=== PATIENT | female | born 1970 | race Caucasian/White ===

== ENCOUNTER 2017-09-30 12:48 | Emergency (ER) | payer MEDICARE, MEDICAID ==
[2017-09-30] MEDS ORDERED: HYDROmorphone 1 MG/ML Syringe IVPUSH ONE ×3 (13:17→14:10)
--- NOTE | 2017-09-30 13:25 | EDM.PDOC ---
ED HPI GENERAL MEDICAL PROBLEM - General Chief Complaint: Lower Extremity Injury/Pain Stated Complaint: AMBULANCE Time Seen by Provider: 09/30/17 13:00 Source of Information: Reports: Patient History Limitations: Reports: No Limitations - History of Present Illness INITIAL COMMENTS - FREE TEXT/NARRATIVE: This 47 yo female patient reports to the ED due to a ground level fall and left lower extremity pain. The patient reports she was walking and fell. During the fall, the patient reports hearing a "snap." The patient was brought to the ED by [facility] without IV access, or a splint applied. The patient reports her pain is a 10/10 at this time. The patient did take a [place] 30 minutes prior to the incident. Onset: Today Duration: Minutes: Location: Reports: Lower Extremity, Left Quality: Reports: Ache, Sharp Severity: Severe Improves with: Reports: None Worsens with: Reports: None Context: Reports: Other (ground level fall) Associated Symptoms: Reports: No Other Symptoms Left Lower Leg Pain Score (Numeric/FACES): 10 - Related Data Allergies Allergy/AdvReac Type Severity Reaction Status Date / Time ibuprofen [From Motrin] Allergy Nausea and Verified 09/30/17 13:21 Vomiting meperidine HCl [From Demerol] Allergy Hives Verified 09/30/17 13:21 sumatriptan [From Imitrex] Allergy Swollen Verified 09/30/17 13:21 Tongue sumatriptan succinate Allergy Swollen Verified 09/30/17 13:21 [From Imitrex] Tongue Home Meds: Home Meds Acetaminophen [Tylenol Extra Strength] 500 mg PO ASDIRECTED PRN 01/26/14 [ History] Zolpidem [Ambien] 10 mg PO ASDIRECTED PRN 12/18/14 [History] clonazePAM [Clonazepam] 1 mg PO ASDIRECTED PRN 12/18/14 [History] oxyCODONE HCl/Acetaminophen [Endocet 5-325 Tablet] 1 tab PO ASDIRECTED 12/18/14 [History] tiZANidine [Zanaflex] 4 mg PO ASDIRECTED 12/18/14 [History] hydrOXYzine HCl [hydrOXYzine] 10 mg PO Q6H PRN #30 tablet 12/21/14 [Rx] Past Medical History - Past Health History Medical/Surgical History: Denies Medical/Surgical History Social & Family History - Tobacco Use Smoking Status *Q: Current Every Day Smoker Years of Tobacco use: 20 Used Tobacco, but Quit: No Second Hand Smoke Exposure: Yes - Alcohol Use Days Per Week of Alcohol Use: 0 - Recreational Drug Use Recreational Drug Use: No - Living Situation & Occupation Living situation: Reports: with Family Occupation: Employed Review of Systems - Review of Systems Review Of Systems: ROS reveals no pertinent complaints other than HPI. ED EXAM, GENERAL - Physical Exam Exam: See Below Exam Limited By: No Limitations General Appearance: Alert, WD/WN, Severe Distress, Obese Eye Exam: Bilateral Eye: EOMI, Normal Inspection, PERRL Ears: Normal External Exam, Normal Canal, Hearing Grossly Normal, Normal TMs Nose: Normal Inspection, Normal Mucosa, No Blood Throat/Mouth: Normal Inspection, Normal Lips, Normal Teeth, Normal Gums, Normal Oropharynx, Normal Voice, No Airway Compromise Head: Atraumatic, Normocephalic Neck: Normal Inspection, Supple, Non-Tender, Full Range of Motion Respiratory/Chest: No Respiratory Distress, Lungs Clear, Normal Breath Sounds, No Accessory Muscle Use, Chest Non-Tender Cardiovascular: Normal Peripheral Pulses, Regular Rate, Rhythm, No Edema, No Gallop, No JVD, No Murmur, No Rub GI/Abdominal: Normal Bowel Sounds, Soft, Non-Tender, No Organomegaly, No Distention, No Abnormal Bruit, No Mass (Female) Exam: Deferred Rectal (Female) Exam: Deferred Back Exam: Normal Inspection, Full Range of Motion, NT Extremities: Leg Pain (left lower extremity), Other (deformity of the left lower leg (mid Tib/fib)) Neurological: Alert, Oriented, CN II-XII Intact, Normal Cognition, No Motor/ Sensory Deficits Psychiatric: Normal Affect, Normal Mood Skin Exam: Warm, Dry, Intact, Normal Color, No Rash Lymphatic: No Adenopathy Course - Vital Signs Last Recorded V/S: Last Vital Signs Temp 36.4 C 09/30/17 13:10 Pulse 87 09/30/17 13:10 Resp 26 H 09/30/17 13:10 BP 145/75 H 09/30/17 13:10 Pulse Ox 98 09/30/17 13:10 - Orders/Labs/Meds Orders: Active Orders 24 hr Category Date Time Status DRUG SCREEN URINE BIORAD [URCHEM] Stat Lab 09/30/17 13:06 Uncollected UA W/MICROSCOPIC [URIN] Stat Lab 09/30/17 13:06 Uncollected Labs: Laboratory Tests 09/30/17 09/30/17 Range/Units 13:18 13:18 WBC 13.7 H (5.0-10.0) 10^3/uL RBC 5.31 (4.2-5.4) 10^6/uL Hgb 15.3 (12.0-16.0) g/dL Hct 46.6 (37.0-47.0) % MCV 87.8 D (80-100) fL MCH 28.8 (27.0-34.0) pg MCHC 32.8 L (33.0-35.0) g/dL Plt Count 250 (150-450) 10^3/uL Neut % (Auto) 70.9 (42.2-75.2) % Lymph % (Auto) 21.1 (20.5-50.1) % [place] % (Auto) 5.7 (2-8) % Eos % (Auto) 1.9 (1.0-3.0) % Baso % (Auto) 0.4 (0.0-1.0) % Sodium 138 (135-145) mmol/L Potassium 4.2 (3.6-5.0) mmol/L Chloride 104 (101-111) mmol/L Carbon Dioxide 27.0 (21.0-31.0) mmol/L Anion Gap 11.2 BUN 7 (7-18) mg/dL Creatinine 0.8 (0.6-1.3) mg/dL Est Cr Clr Drug Dosing 75.07 mL/min Estimated GFR (MDRD) > 60 BUN/Creatinine Ratio 8.75 Glucose 98 (74-105) mg/dL Calcium 9.3 (8.4-10.2) mg/dl Total Bilirubin 0.2 (0.2-1.0) mg/dL AST 15 (10-42) IU/L ALT 9 L (10-60) IU/L Alkaline Phosphatase 81 (42-121) IU/L Total Protein 7.8 (6.7-8.2) g/dl Albumin 4.0 (3.2-5.5) g/dl Globulin 3.8 Albumin/Globulin Ratio 1.05 Ethyl Alcohol < 5 mg/dL Meds: Medications Discontinued Medications Generic Name Dose Route Start Last Admin Trade Name Freq PRN Reason Stop Dose Admin Hydromorphone HCl 1 mg 09/30/17 13:17 09/30/17 13:21 Dilaudid IVPUSH 09/30/17 13:18 1 mg ONETIME ONE Administration Hydromorphone HCl 1 mg 09/30/17 13:49 09/30/17 13:58 Dilaudid IVPUSH 09/30/17 13:50 1 mg ONETIME ONE Administration Hydromorphone HCl 1 mg 09/30/17 14:10 09/30/17 14:16 Dilaudid IVPUSH 09/30/17 14:11 1 mg ONETIME ONE Administration Departure - Departure Time of Disposition: 14:24 Disposition: DC/Tfer to Acute Hospital 02 Condition: Fair Clinical Impression: Closed fracture of left tibia and fibula Qualifiers: Encounter type: initial encounter Qualified Code(s): S82.202A - Unspecified fracture of shaft of left tibia, initial encounter for closed fracture - Discharge Information Instructions: Tibial and Fibular Fracture, Adult Forms: Interfacility Transfer EMTALA Care Plan Goals: Discussed the history, examination, and x-ray results with Dr. Evans via [facility]. Dr. Evans accepted the patient for continued evaluation and further management at [facility] in [place]. The patient will be transported by [facility] with orders for Dilaudid every 30 minutes as needed for pain control. - My Orders Last 24 Hours: My Active Orders 09/30/17 13:06 DRUG SCREEN URINE BIORAD [URCHEM] Stat UA W/MICROSCOPIC [URIN] Stat - Assessment/Plan Last 24 Hours: My Active Orders 09/30/17 13:06 DRUG SCREEN URINE BIORAD [URCHEM] Stat UA W/MICROSCOPIC [URIN] Stat
[2017-09-30 13:43] LABS: CHLORIDE,CL 104 mmol/L (101-111); SODIUM,NA 138 mmol/L (135-145)
[2017-09-30 14:29] VITALS: BP 106/53
== END 2017-09-30 15:01 ==
LOC: DL.ED 12:48
DX: S82.832A Other fracture of upper and lower end of left fibula, initial encounter for closed fracture (principal); S82.292A Other fracture of shaft of left tibia, initial encounter for closed fracture; F17.210 Nicotine dependence, cigarettes, uncomplicated; Z88.6 Allergy status to analgesic agent; Z88.8 Allergy status to other drugs, medicaments and biological substances; W18.30XA Fall on same level, unspecified, initial encounter; Z79.899 Other long term (current) drug therapy
CPT/HCPCS: 36415; 73590; 80053; 80305; 81001; 85025; 96374; 96375; 96376; 99284; 99285; G0480; J1170

== ENCOUNTER 2021-07-05 19:38 | Emergency (ER) | payer MEDICARE, MEDICAID ==
[2021-07-05 20:13] VITALS: BP 129/77; PULSE 106
--- NOTE | 2021-07-05 21:33 | EDM.PDOC ---
ED HPI GENERAL MEDICAL PROBLEM - General Chief Complaint: ENT Problem Stated Complaint: THROAT SORE, BODY ACHES, HEADACHE, CHILLS Time Seen by Provider: 07/05/21 20:15 Source of Information: Reports: Patient History Limitations: Reports: No Limitations - History of Present Illness INITIAL COMMENTS - FREE TEXT/NARRATIVE: ED with c/o sore throat congestion cough . Some body aches. Tylenol x one time today, did feel some better after. No nausea or vomiting. no loss of taste or smell . Onset sx yesterday. No fever. - Related Data Allergies Allergy/AdvReac Type Severity Reaction Status Date / Time ibuprofen [From Motrin] Allergy Nausea and Verified 07/05/21 19:58 Vomiting meperidine HCl [From Demerol] Allergy Hives Verified 07/05/21 19:58 sumatriptan [From Imitrex] Allergy Swollen Verified 07/05/21 19:58 Tongue sumatriptan succinate Allergy Swollen Verified 07/05/21 19:58 [From Imitrex] Tongue Home Meds: Home Meds Acetaminophen [Tylenol Extra Strength] 500 mg PO ASDIRECTED PRN 01/26/14 [History] Zolpidem [Ambien] 10 mg PO ASDIRECTED PRN 12/18/14 [History] clonazePAM [Clonazepam] 1 mg PO ASDIRECTED PRN 12/18/14 [History] oxyCODONE HCl/Acetaminophen [Endocet 5-325 Tablet] 1 tab PO ASDIRECTED 12/18/14 [History] tiZANidine [Zanaflex] 4 mg PO ASDIRECTED 12/18/14 [History] hydrOXYzine HCL [hydrOXYzine] 10 mg PO Q6H PRN #30 tablet 12/21/14 [Rx] Gabapentin [Neurontin] 1,200 mg PO TID 07/05/21 [History] Levothyroxine Sodium [Synthroid] 125 mcg PO DAILY 07/05/21 [History] buprenorphine HCL [Belbuca] 300 mcg BC BID 07/05/21 [History] Past Medical History - Past Health History Medical/Surgical History: Denies Medical/Surgical History HEENT History: Reports: Impaired Vision Respiratory History: Reports: COPD Gastrointestinal History: Reports: GERD Neurological History: Reports: Migraines Endocrine/Metabolic History: Reports: Hyperthyroidism, Hypoparathyroidism, Hypot hyroidism - Past Surgical History HEENT Surgical History: Reports: Tonsillectomy GI Surgical History: Reports: Cholecystectomy Female Surgical History: Reports: Section, Hysterectomy Musculoskeletal Surgical History: Reports: Other (See Below) Other Musculoskeletal Surgeries/Procedures:: 12 foot surgeries bilaterally, Social & Family History - Family History Family Medical History: No Pertinent Family History - Tobacco Use Tobacco Use Status *Q: Current Every Day Tobacco User Years of Tobacco use: 30 Packs/Tins Daily: 2 - Caffeine Use Caffeine Use: Reports: Coffee, Soda - Recreational Drug Use Recreational Drug Use: No - Living Situation & Occupation Living situation: Reports: with Family Occupation: Employed ED ROS ENT - Review of Systems Review Of Systems: Comprehensive ROS is negative, except as noted in HPI. ED EXAM, ENT - Physical Exam Exam: See Below Exam Limited By: No Limitations General Appearance: Alert, Mild Distress Eye Exam: Bilateral Eye: EOMI Ears: Normal External Exam, TM Fluid Nose: Normal Inspection Mouth/Throat: Pharyngeal Erythema (mild) Head: Atraumatic, Normocephalic Respiratory/Chest: No Respiratory Distress, Lungs Clear, Normal Breath Sounds Cardiovascular: Normal Peripheral Pulses, Regular Rate, Rhythm, No Edema GI/Abdominal: Normal Bowel Sounds, Soft Back: Normal Inspection Neurological: Alert, Oriented, Normal Cognition Psychiatric: Normal Affect, Normal Mood Skin: Warm, Dry, Intact, Normal Color, No Rash Course - Vital Signs Last Recorded V/S: Last Vital Signs Temp 99 F 07/05/21 20:07 Pulse 106 H 07/05/21 20:07 Resp 18 07/05/21 20:07 BP 129/77 07/05/21 20:07 Pulse Ox 99 07/05/21 20:07 - Orders/Labs/Meds Labs: Laboratory Tests 07/05/21 Range/Units 19:50 SARS-CoV-2 RNA (MISA) Positive H (NEGATIVE) Departure - Departure Time of Disposition: 21:30 Disposition: Home, Self-Care 01 Condition: Good Clinical Impression: COVID-19 - Discharge Information *PRESCRIPTION DRUG MONITORING PROGRAM REVIEWED*: No *COPY OF PRESCRIPTION DRUG MONITORING REPORT IN PATIENT HENRY: No Instructions: 10 Things You Can Do to Manage Your COVID-19 Symptoms at Home - [facility] (04/28/2021) Forms: ED Department Discharge Additional Instructions: fluids rest quarantine 10-14 days good handwashing tylenol 500mg every 4 hours as needed for fever/ discomfort muccinex or similar per label instructions urgent follow up if difficulty breathing Sepsis Event Note (ED) - Evaluation Sepsis Screening Result: No Definite Risk
== END 2021-07-05 21:40 | disposition home or self-care (01) ==
LOC: DL.ED 19:38
DX: U07.1 COVID-19 (principal); J44.9 Chronic obstructive pulmonary disease, unspecified; E20.9 Hypoparathyroidism, unspecified; Z72.0 Tobacco use; Z88.6 Allergy status to analgesic agent; Z88.5 Allergy status to narcotic agent; Z88.8 Allergy status to other drugs, medicaments and biological substances; Z79.899 Other long term (current) drug therapy
CPT/HCPCS: 87081; 87430; 87804; 99283; U0002

== ENCOUNTER 2021-08-12 12:50 | Emergency (ER) | payer MEDICARE, MEDICAID ==
[2021-08-12 13:08] VITALS: BP 126/82; PULSE 98
[2021-08-12] MEDS ORDERED: cefTRIAXone 1 GM, Lidocaine 1% 2.1 ML IM ONE ×2 (13:58)
[2021-08-12 14:28] LABS: ANION GAP 14.7 mEq/L (7-13)
--- NOTE | 2021-08-12 14:50 | EDM.PDOC ---
Scribed by Frieda Mcfadden 08/12/21 [id number] for Sophia Biggs MD ED HPI GENERAL MEDICAL PROBLEM - General Chief Complaint: Genitourinary Problem Stated Complaint: [id number] BAD UTI Time Seen by Provider: 08/12/21 13:49 Source of Information: Reports: Patient, RN, RN Notes Reviewed History Limitations: Reports: No Limitations - History of Present Illness INITIAL COMMENTS - FREE TEXT/NARRATIVE: Patient presents for suspected urinary tract infection. She has been having symptoms of dysuria, urgency and frequency for the last 3 weeks. She has been using Azo and thought it was getting better, however, last night she started getting fevers and chills and body aches. She had not had a UTI for many years. She has had a kidney infection before after delaying UTI treatment. Sitting makes it worse. Nothing seems to make it better. She is starting to notice some left flank pain. She endorses from right low back pain but thinks this could be due to a recent fall. Onset: Gradual Duration: Constant Severity: Moderate Vaginal Pain Score (Numeric/FACES): 6 - Related Data Allergies Allergy/AdvReac Type Severity Reaction Status Date / Time ibuprofen [From Motrin] Allergy Nausea and Verified 08/12/21 13:08 Vomiting meperidine HCl [From Demerol] Allergy Hives Verified 08/12/21 13:08 sumatriptan [From Imitrex] Allergy Swollen Verified 08/12/21 13:08 Tongue sumatriptan succinate Allergy Swollen Verified 08/12/21 13:08 [From Imitrex] Tongue Home Meds: Home Meds Acetaminophen [Tylenol Extra Strength] 1,000 mg PO ASDIRECTED PRN 01/26/14 [History] Zolpidem [Ambien] 10 mg PO ASDIRECTED PRN 12/18/14 [History] Gabapentin [Neurontin] 1,200 mg PO TID 07/05/21 [History] Levothyroxine Sodium [Synthroid] 175 mcg PO DAILY 07/05/21 [History] buprenorphine HCL [Belbuca] 300 mcg BC BID 07/05/21 [History] Albuterol Sulfate [Albuterol Sulfate Hfa] 1 puff INH ASDIRECTED PRN 08/12/21 [History] Famotidine [Pepcid] 20 mg PO DAILY 08/12/21 [History] Incruse 62.5 mcg INH DAILY 08/12/21 [History] Omeprazole 20 mg PO DAILY 08/12/21 [History] Past Medical History - Past Health History Medical/Surgical History: Denies Medical/Surgical History HEENT History: Reports: Impaired Vision Other HEENT History: wears glasses Cardiovascular History: Reports: None Respiratory History: Reports: COPD Gastrointestinal History: Reports: GERD Genitourinary History: Reports: None [employer] History: Reports: None Musculoskeletal History: Reports: None Neurological History: Reports: Migraines Psychiatric History: Reports: None Endocrine/Metabolic History: Reports: Hyperthyroidism, Hypoparathyroidism, Hypothyroidism Hematologic History: Reports: None Immunologic History: Reports: None Oncologic (Cancer) History: Reports: None Dermatologic History: Reports: None - Infectious Disease History Infectious Disease History: Reports: Chicken Pox, Shingles - Past Surgical History Head Surgeries/Procedures: Reports: None HEENT Surgical History: Reports: Tonsillectomy GI Surgical History: Reports: Cholecystectomy Female Surgical History: Reports: Section, Hysterectomy Musculoskeletal Surgical History: Reports: Other (See Below) Other Musculoskeletal Surgeries/Procedures:: 12 foot surgeries bilaterally, Social & Family History - Family History Family Medical History: No Pertinent Family History - Tobacco Use Tobacco Use Status *Q: Current Every Day Tobacco User Years of Tobacco use: 35 Packs/Tins Daily: 0.5 Second Hand Smoke Exposure: No - Caffeine Use Caffeine Use: Reports: Coffee - Recreational Drug Use Recreational Drug Type: Reports: Marijuana/Hashish - Living Situation & Occupation Living situation: Reports: with Family Occupation: Employed ED ROS GENERAL - Review of Systems Review Of Systems: Comprehensive ROS is negative, except as noted in HPI. ED EXAM, RENAL/ - Physical Exam Exam: See Below Exam Limited By: No Limitations General Appearance: Alert, WD/WN, No Apparent Distress Eye Exam: Bilateral Eye: EOMI, Normal Inspection, PERRL Ears: Normal External Exam, Normal Canal, Hearing Grossly Normal, Normal TMs Nose: Normal Inspection, Normal Mucosa, No Blood Throat/Mouth: Normal Inspection, Normal Lips, Normal Teeth, Normal Gums, Normal Oropharynx, Normal Voice, No Airway Compromise Head: Atraumatic, Normocephalic Neck: Normal Inspection, Supple, Non-Tender, Full Range of Motion Respiratory/Chest: No Respiratory Distress, Lungs Clear, Normal Breath Sounds, No Accessory Muscle Use, Chest Non-Tender Cardiovascular: Normal Peripheral Pulses, Regular Rate, Rhythm, No Edema, No Gallop, No JVD, No Murmur, No Rub GI/Abdominal: Normal Bowel Sounds, Soft, Non-Tender, No Organomegaly, No Distention, No Abnormal Bruit, No Mass (Female) Exam: Deferred Rectal (Female) Exam: Deferred Back Exam: CVA Tenderness (L) Extremities: Normal Inspection, Normal Range of Motion, Non-Tender, Normal Capillary Refill, No Pedal Edema Neurological: Alert, Oriented, CN II-XII Intact, Normal Cognition, Normal Gait, Normal Reflexes, No Motor/Sensory Deficits Psychiatric: Normal Affect, Normal Mood Skin Exam: Warm, Dry, Intact, Normal Color, No Rash Course - Vital Signs Last Recorded V/S: Last Vital Signs Temp 96.9 F 08/12/21 12:59 Pulse 98 08/12/21 12:59 Resp 16 08/12/21 12:59 BP 126/82 08/12/21 12:59 Pulse Ox 94 L 08/12/21 12:59 - Orders/Labs/Meds Orders: Active Orders 24 hr Category Date Time Status CULTURE URINE [RM] Stat Lab 08/12/21 13:05 Received Labs: Laboratory Tests 08/12/21 08/12/21 08/12/21 Range/Units 13:05 14:04 14:04 WBC 15.6 H (5.0-10.0) 10^3/uL RBC 4.95 (4.2-5.4) 10^6/uL Hgb 14.4 (12.0-16.0) g/dL Hct 45.2 (37.0-47.0) % MCV 91.3 D (80-100) fL MCH 29.1 (27.0-34.0) pg MCHC 31.9 L (33.0-35.0) g/dL Plt Count 277 (150-450) 10^3/uL Neut % (Auto) 70.5 (42.2-75.2) % Lymph % (Auto) 18.2 L (20.5-50.1) % [place] % (Auto) 8.9 H (2-8) % Eos % (Auto) 2.1 (1.0-3.0) % Baso % (Auto) 0.3 (0.0-1.0) % Sodium 140 (136-145) mmol/L Potassium 3.7 (3.5-5.1) mmol/L Chloride 102 (98-107) mmol/L Carbon Dioxide 27 (21-32) mmol/L Anion Gap 14.7 H (7-13) mEq/L BUN 7 (7-18) mg/dL Creatinine 1.02 (0.55-1.02) mg/dL Est Cr Clr Drug Dosing 56.35 mL/min Estimated GFR (MDRD) 57 BUN/Creatinine Ratio 6.9 (No establ ref range) Glucose 92 (70-99) mg/dL Calcium 8.7 (8.5-10.1) mg/dL Total Bilirubin 0.7 (0.2-1.0) mg/dL AST 14 L (15-37) U/L ALT 14 (14-59) U/L Alkaline Phosphatase 124 H (46-116) U/L Total Protein 7.9 (6.4-8.2) g/dL Albumin 3.6 (3.4-5.0) g/dL Globulin 4.3 Albumin/Globulin Ratio 0.8 Urine Color Yellow (YELLOW) Urine Appearance Turbid (CLEAR) Urine pH 6.5 (5.0-9.0) Ur Specific [place] 1.020 (1.005-1.030) Urine Protein 30 H (NEGATIVE) Urine Glucose (UA) Negative (NEGATIVE) Urine Ketones Negative (NEGATIVE) Urine Occult Blood Moderate H (NEGATIVE) Urine Nitrite Positive H (NEGATIVE) Urine Bilirubin Negative (NEGATIVE) Urine Urobilinogen 0.2 (0.2-1.0) mg/dL Ur Leukocyte Esterase Small H (NEGATIVE) Urine RBC 10-20 H (0-5) /HPF Urine WBC >100 H (0-5/HPF) /HPF Ur Epithelial Cells Rare (NOT SEEN) /HPF Urine Bacteria Moderate H (0-FEW/HPF) /HPF Urine Mucus Rare (NOT SEEN) /LPF Meds: Medications Discontinued Medications Generic Name Dose Route Start Last Admin Trade Name Freq PRN Reason Stop Dose Admin Ceftriaxone Sodium 1 gm/ 0 gm 08/12/21 13:58 08/12/21 14:41 Lidocaine HCl 2.1 ml IM 08/12/21 13:59 1 inj ONETIME ONE Administration - Re-Assessments/Exams Free Text/Narrative Re-Assessment/Exam: 08/12/21 14:48 Patient received her first dose of Rocephin here in the ER. Departure - Departure Time of Disposition: 14:48 Disposition: Home, Self-Care 01 Condition: Good Clinical Impression: UTI, Urinary tract infectious disease - Discharge Information *PRESCRIPTION DRUG MONITORING PROGRAM REVIEWED*: Not Applicable *COPY OF PRESCRIPTION DRUG MONITORING REPORT IN PATIENT HENRY: Not Applicable Instructions: Urinary Tract Infection, Adult Forms: ED Department Discharge Additional Instructions: RX: Augmentin 875/125mg two times a day for 10 days. Over the counter medications as needed for symptomatic relief. Drink plenty of water. Follow with primary. Sepsis Event Note (ED) - Evaluation Sepsis Screening Result: No Definite Risk - Focused Exam Vital Signs: Vital Signs Temp Pulse Resp BP Pulse Ox 08/12/21 12:59 96.9 F 98 16 126/82 94 L - My Orders Last 24 Hours: My Active Orders 08/12/21 13:05 CULTURE URINE [RM] Stat - Assessment/Plan Last 24 Hours: My Active Orders 08/12/21 13:05 CULTURE URINE [RM] Stat I have read and agree with the documentation that has been completed regarding this visit. By signing this record, I attest that the documentation was completed in my physical presence and is an accurate record of the encounter.
== END 2021-08-12 14:58 | disposition home or self-care (01) ==
LOC: DL.ED 12:50
DX: N39.0 Urinary tract infection, site not specified (principal); J44.9 Chronic obstructive pulmonary disease, unspecified; K21.9 Gastro-esophageal reflux disease without esophagitis; E20.9 Hypoparathyroidism, unspecified; Z72.0 Tobacco use; Z88.6 Allergy status to analgesic agent; Z88.1 Allergy status to other antibiotic agents; Z88.8 Allergy status to other drugs, medicaments and biological substances; Z79.899 Other long term (current) drug therapy
CPT/HCPCS: 36415; 80053; 81001; 85025; 87086; 87088; 87186; 96372; 99283; J0696

== ENCOUNTER 2024-04-08 13:42 | Emergency (ER) | payer MEDICARE, MEDICAID ==
[2024-04-08] MEDS: Aspirin 81 MG Tab.Chew PO ONE (13:56)
[2024-04-08] MEDS: Sodium Chloride 0.9% 10 ML Syringe FLUSH PRN (13:57)
[2024-04-08 14:02] LABS: BASOPHILS PERCENT AUTO 0.4 % (0.0-1.0); EOSINOPHILS PERCENT AUTO 1.9 % (1.0-3.0); HEMATOCRIT 49.6 % (37.0-47.0); LYMPHOCYTES PERCENT AUTO 12.3 % (20.5-50.1); MEAN CORPUSCULAR HEMOGLOBIN 28.2 pg (27.0-34.0); MEAN CORPUSCULAR HGB CONC 32.3 g/dL (33.0-35.0); MEAN CORPUSCULAR VOLUME 87.5 fL (80-100); MONOCYTES PERCENT AUTO 6.5 % (2-8); NEUTROPHILS PERCENT AUTO 78.9 % (42.2-75.2); PLATELET COUNT,PLT 289 10^3/uL (150-450); RED BLOOD CELL COUNT 5.67 10^6/uL (4.2-5.4); WHITE BLOOD CELL COUNT,WBC 12.1 10^3/uL (5.0-10.0)
[2024-04-08] MEDS: Ondansetron 4 MG/2 ML SDV IVPUSH ONE (14:05)
[2024-04-08] MEDS: HYDROmorphone 0.5 MG/0.5 ML Syringe IVPUSH ONE (14:05)
[2024-04-08] MEDS: Iopamidol 755 Mg/ML 100 ML Bottle IVPUSH ONE (14:11)
[2024-04-08 14:13] LABS: INR 0.9 (0.9-1.2); PROTHROMBIN TIME 9.4 SEC (9.0-12.0)
[2024-04-08 14:25] LABS: ALBUMIN 3.8 g/dL (3.4-5.0); ANION GAP 13.2 mEq/L (7-13); BILIRUBIN TOTAL 0.3 mg/dL (0.2-1.0); BUN/CREATININE RATIO 7.8 (No establ ref range); CALCIUM 9.1 mg/dL (8.5-10.1); CREATININE 1.03 mg/dL (0.55-1.02); EST CRCL DRUG DOSING (CG) 54.54 mL/min; POTASSIUM,K 4.2 mmol/L (3.5-5.1); PROTEIN TOTAL,TP 7.5 g/dL (6.4-8.2)
[2024-04-08 14:51] VITALS: BP 169/83; PULSE 94
== END 2024-04-08 14:30 ==
LOC: DL.ED 13:42
DX: I21.3 ST elevation (STEMI) myocardial infarction of unspecified site (principal); J44.9 Chronic obstructive pulmonary disease, unspecified; K21.9 Gastro-esophageal reflux disease without esophagitis; E03.9 Hypothyroidism, unspecified; Z88.6 Allergy status to analgesic agent; Z79.899 Other long term (current) drug therapy; Z79.51 Long term (current) use of inhaled steroids; Z79.890 Hormone replacement therapy; Z90.49 Acquired absence of other specified parts of digestive tract; Z90.710 Acquired absence of both cervix and uterus
CPT/HCPCS: 36415; 71275; 80053; 84484; 85025; 85610; 86140; 96374; 96375; 99285-25; A9270-GY; J1170; J2405; J3490; Q9967

== ENCOUNTER 2024-08-10 15:30 | Emergency (ER) | payer MEDICARE, MEDICAID ==
[2024-08-10] MEDS ORDERED: Sodium Chloride 0.9% 10 ML Syringe FLUSH PRN (15:59)
[2024-08-10 16:12] VITALS: BP 154/87; PULSE 99
[2024-08-10 16:29] LABS: BASOPHILS PERCENT AUTO 0.3 % (0.0-1.0); EOSINOPHILS PERCENT AUTO 2.5 % (1.0-3.0); HEMATOCRIT 45.7 % (37.0-47.0); HEMOGLOBIN 14.6 g/dL (12.0-16.0); LYMPHOCYTES PERCENT AUTO 18.1 % (20.5-50.1); MEAN CORPUSCULAR HEMOGLOBIN 25.6 pg (27.0-34.0); MEAN CORPUSCULAR HGB CONC 31.9 g/dL (33.0-35.0); MONOCYTES PERCENT AUTO 7.3 % (2-8); NEUTROPHILS PERCENT AUTO 71.8 % (42.2-75.2); PLATELET COUNT,PLT 314 10^3/uL (150-450); RED BLOOD CELL COUNT 5.71 10^6/uL (4.2-5.4); WHITE BLOOD CELL COUNT,WBC 10.5 10^3/uL (5.0-10.0)
[2024-08-10 16:51] LABS: A/G RATIO 0.7; ALBUMIN 3.4 g/dL (3.4-5.0); ANION GAP 12.2 mEq/L (7-13); BILIRUBIN TOTAL 0.3 mg/dL (0.2-1.0); BUN/CREATININE RATIO 5.9 (No establ ref range); CALCIUM 9.8 mg/dL (8.5-10.1); CREATININE 0.85 mg/dL (0.55-1.02); EST CRCL DRUG DOSING (CG) 62.59 mL/min; POTASSIUM,K 3.2 mmol/L (3.5-5.1); PROTEIN TOTAL,TP 8.2 g/dL (6.4-8.2)
[2024-08-10 18:02] LABS: APPEARANCE,URINE CLEAR (CLEAR); BILIRUBIN,URINE NEGATIVE (NEGATIVE); COLOR,URINE YELLOW (YELLOW); GLUCOSE,URINE NEGATIVE (NEGATIVE); KETONES,URINE NEGATIVE (NEGATIVE); LEUKOCYTE ESTERASE,URINE NEGATIVE (NEGATIVE); NITRITE,URINE NEGATIVE (NEGATIVE); OCCULT BLOOD,URINE TRACE-INTACT (NEGATIVE); PROTEIN,URINE NEGATIVE (NEGATIVE); UROBILINOGEN,URINE 0.2 mg/dL (0.2-1.0)
[2024-08-10 18:17] LABS: BACTERIA,URINE RARE /HPF (0-FEW/HPF); EPITHELIAL CELLS,URINE MODERATE /HPF (NOT SEEN); MUCUS,URINE MANY /LPF (NOT SEEN); RBC,URINE 0-5 /HPF (0-5); WBC,URINE 0-5 /HPF (0-5/HPF)
== END 2024-08-10 18:33 | disposition left against medical advice (07) ==
LOC: DL.ED 15:30
DX: Z53.21 Procedure and treatment not carried out due to patient leaving prior to being seen by health care provider (principal)
CPT/HCPCS: 36415; 80053; 81001; 83880; 84484; 85025